=== PATIENT | female | born 1990 | race Two or more races ===

== ENCOUNTER 2020-04-26 11:00 | Emergency (ER) | payer SELFPAY ==
[~2020-04-26] VITALS: Ht 160 cm; Wt 79.5 kg
--- NOTE | 2020-04-26 15:28 | RAD ---
Three-view left ankle dated 04/26/2020. No comparison available. Clinical data indication: Pain after injury. FINDINGS: 3 views of the left ankle show an oblique fracture through the distal one third shaft fibula with fra cture lines extending to the ankle mortise. The distal tibia and talus are intact. There is diffuse s oft tissue swelling. No additional fractures are seen. IMPRESSION: Oblique fracture through the distal one third shaft fibula, not significantly displaced. Electronically signed by: Tavon Conde MD (04/26/2020 3:25 PM) [id number]
[2020-04-26] MEDS ORDERED: HYDR-3164 PO (15:39)
[2020-04-26] MEDS ORDERED: IBUP-1007 PO (15:39)
--- NOTE | 2020-04-26 15:41 | PHYS DOC ---
Past Medical History Past Medical History: No Pertinent History Past Surgical History: No Surgical History Smoking Status: Current Every Day Smoker Alcohol Use: None Drug Use: Benzodiazepine, Opiates General Adult EDM: Chief Complaint: ANKLE PROBLEM HPI: HPI: Patient is a 29 year old female who presents with injured her left ankle by rolling it 2 months ago and was not seen by a physician for it. States today she was walking and had a sharp shooting pain in the ankle but states this has been happening since the injury. She states is never really gotten better. States been taking ibuprofen and Tylenol. She rates her pain a 7 out of 10. She has a history of being a smoker. Review of Systems: Review of Systems: Constitutional: Denies fever or chills. [] Eyes: Denies change in visual acuity. [] HENT: Denies nasal congestion or sore throat. [] Respiratory: Denies cough or shortness of breath. [] Cardiovascular: Denies chest pain. + Left ankle 1-2+ edema. [] GI: Denies abdominal pain, nausea, vomiting, bloody stools or diarrhea. [] : Denies dysuria. [] Musculoskeletal: Denies back pain. + Left ankle joint pain. [] Integument: Denies rash. [] Neurologic: Denies headache, focal weakness or sensory changes. [] Endocrine: Denies polyuria or polydipsia. [] Lymphatic: Denies swollen glands. [] Psychiatric: Denies depression or anxiety. [] Heart Score: Risk Factors: Risk Factors: DM, Current or recent (<one month) smoker, HTN, HLP, family history of CAD, obesity. Risk Scores: Score 0 - 3: 2.5% MACE over next 6 weeks - Discharge Home Score 4 - 6: 20.3% MACE over next 6 weeks - Admit for Clinical Observation Score 7 - 10: 72.7% MACE over next 6 weeks - Early Invasive Strategies Allergies: Allergies: Allergies Coded Allergies Type Severity Reaction Last Updated Verified No Known Drug Allergies 01/20/14 No Physical Exam: PE: Constitutional: Well developed, well nourished, no acute distress, non-toxic appearance. [] HENT: Normocephalic, atraumatic, bilateral external ears normal, oropharynx moist, no oral exudates, nose normal. [] Eyes: PERRLA, EOMI, conjunctiva normal, no discharge. [] Neck: Normal range of motion, no tenderness, supple, no stridor. [] Cardiovascular:Heart rate regular rhythm, no murmur [] Lungs & Thorax: Bilateral breath sounds clear to auscultation [] Abdomen: Bowel sounds normal, soft, no tenderness, no masses, no pulsatile masses. [] Skin: Warm, dry, no erythema, no rash. [] Back: No tenderness, no CVA tenderness. [] Extremities: Left medial and lateral ankle tenderness, no cyanosis, no clubbing, ROM intact, 2+ edema. [] Neurologic: Alert and oriented X 3, normal motor function, normal sensory function, no focal deficits noted. [] Psychologic: Affect normal, judgement normal, mood normal. [] Current Patient Data: Labs: Laboratory Tests Test 04/26/20 14:13 POC Urine HCG, Qualitative Hcg negative (Negative) EKG: EKG: [] Radiology/Procedures: Radiology/Procedures: [] Impression: [facility] [address] [place], [place] [id number] IMAGING REPORT Signed PATIENT: LEXY YU ACCOUNT: [id number] : 1990 LOCATION: ER AGE: 29 SEX: F EXAM STATUS: REG ER ORD. PHYSICIAN: RIA OLSEN APRN REASON: pain, swelling PROCEDURE: ANKLE LEFT 3V Three-view left ankle dated 04/26/2020. No comparison available. Clinical data indication: Pain after injury. FINDINGS: 3 views of the left ankle show an oblique fracture through the distal one third shaft fibula with fracture lines extending to the ankle mortise. The distal tibia and talus are intact. There is diffuse soft tissue swelling. No additional fractures are seen. IMPRESSION: Oblique fracture through the distal one third shaft fibula, not significantly displaced. Electronically signed by: Tavon Conde MD (04/26/2020 3:25 PM) [id number] DICTATED and SIGNED BY: TAVON CONDE MD DATE: 04/26/20 [id number] 0 Course & Med Decision Making: Course & Med Decision Making Pertinent Labs and Imaging studies reviewed. (See chart for details) See HPI. Alert and oriented x4. Ambulatory with a steady gait. Pedal pulses strong and present. There is some medial and lateral ankle tenderness. There is no joint laxity. She has full range of motion of the joint. She can wiggle her toes. Cap refill less than 2 seconds. Skin warm pink and dry. She denies any numbness or tingling. Ankle is 1+ swelling. Patient is placed in a stirrup splint due to a fibula fracture. Splint assessment: Neurovascularly intact post splint replacement with good f it. Patient's extremity symptoms have stabilized well they have been evaluated in the department and are appropriate for outpatient follow-up. No evidence of compartment syndrome, neurologic injury, vascular injury, open joint, open fracture, tendon laceration, or foreign body. [] Dragon Disclaimer: Dragon Disclaimer: This electronic medical record was generated, in whole or in part, using a voice recognition dictation system. Departure Departure Impression: Primary Impression: Fibula fracture Qualified Codes: S82.832A - Other fracture of upper and lower end of left fibula, initial encounter for closed fracture Disposition: 01 DC HOME SELF CARE/HOMELESS Condition: STABLE Referrals: NO PCP (PCP) SHIRLEY LYLE MD Patient Instructions: Fibular Fracture with [facility] Additional Instructions: Follow-up with orthopedic as soon as possible. Take medication as prescribed. Use ice and elevation. Scripts Ibuprofen (IBUPROFEN) 600 Mg Tablet 600 MG PO PRN Q6HRS PRN for INFLAMMATION, #20 TAB Prov: RIA OLSEN TIME STUDY ENGINEER 04/26/20 Hydrocodone/Apap 5-325 (NORCO 5-325 TABLET) 1 Each Tablet 1 TAB PO PRN Q6HRS PRN for PAIN, #6 TAB 0 Refills Prov: RIA OLSEN TIME STUDY ENGINEER 04/26/20 RIA OLSEN APRN Apr 26, 2020 15:41
[2020-04-26 16:00] VITALS: BP 119/58
== END 2020-04-26 16:05 | disposition home or self-care (01) ==
LOC: ER 11:00
DX: S82.832A Other fracture of upper and lower end of left fibula, initial encounter for closed fracture (principal); R60.0 Localized edema; F17.200 Nicotine dependence, unspecified, uncomplicated; F19.90 Other psychoactive substance use, unspecified, uncomplicated; X58.XXXA Exposure to other specified factors, initial encounter; Y93.89 Activity, other specified; Y92.89 Other specified places as the place of occurrence of the external cause; Y99.8 Other external cause status
CPT/HCPCS: 29515; 73610; 81025; 99283

== ENCOUNTER 2021-01-02 23:06 | Emergency (ER) | payer SELFPAY ==
[~2021-01-02 23:06] MED LIST: HYDR-3164 PO; IBUP-1007 PO
== END 2021-01-02 23:30 | disposition left against medical advice (07) ==
LOC: ER 23:06
DX: T65.891A Toxic effect of other specified substances, accidental (unintentional), initial encounter (principal); Z53.21 Procedure and treatment not carried out due to patient leaving prior to being seen by health care provider; Y92.89 Other specified places as the place of occurrence of the external cause

== ENCOUNTER 2021-06-14 16:58 | Emergency (ER) | payer MEDICAID ==
[~2021-06-14] VITALS: Ht 160 cm; Wt 86.4 kg
[2021-06-14 17:42] LABS: BILIRUBIN,URINE NEGATIVE (NEG); CLARITY,URINE CLOUDY; COLOR,URINE YELLOW; NITRITE,URINE NEGATIVE (NEG); PH,URINE 8.5 (<5.0-8.0); PROTEIN,URINE NEGATIVE (NEG-TRACE); UROBILINOGEN,URINE 0.2 mg/dL (0.2 mg/dL)
[2021-06-14 17:47] LABS: BASO % 1 % (0-3); EOS # 0.3 x10^3/uL (0.0-0.7); EOS % 3 % (0-3); HEMATOCRIT 32.3 % (36.0-47.0); HEMOGLOBIN 10.9 g/dL (12.0-15.5); LYMPH # 1.8 x10^3/uL (1.0-4.8); LYMPH % 18 % (24-48); MEAN CORPUSCULAR HEMOGLOBIN 30 pg (25-35); MEAN CORPUSCULAR HGB CONC 34 g/dL (31-37); MEAN CORPUSCULAR VOLUME 89 fL (79-100); MONO # 0.8 x10^3/uL (0.0-1.1); MONO % 8 % (0-9); NEUT # 6.8 x10^3/uL (1.8-7.7); NEUT % 70 % (31-73); PLATELET COUNT 332 x10^3/uL (140-400); RED BLOOD COUNT 3.65 x10^6/uL (3.50-5.40); RED CELL DISTRIBUTION WIDTH 12.7 % (11.5-14.5); WHITE BLOOD COUNT 9.7 x10^3/uL (4.0-11.0)
[2021-06-14 17:59] LABS: AMORPHOUS SEDIMENT,UR PRESENT /HPF; BACTERIA,URINE FEW /HPF (0-FEW); RBC,URINE 0 /HPF (0-2); WBC,URINE 0 /HPF (0-4)
[2021-06-14 18:03] LABS: CALCIUM 8.5 mg/dL (8.5-10.1); CREATININE 0.4 mg/dL (0.6-1.0); GFR 186.2; POTASSIUM 4.4 mmol/L (3.5-5.1)
[2021-06-14 18:09] LABS: ALBUMIN 3.2 g/dL (3.4-5.0); TOTAL BILIRUBIN 0.2 mg/dL (0.2-1.0); TOTAL PROTEIN 6.5 g/dL (6.4-8.2)
--- NOTE | 2021-06-14 18:55 | PHYS DOC ---
Past Medical History Past Medical History: No Pertinent History Past Surgical History: Other Additional Past Surgical Histo: RIGHT FOREARM Smoking Status: Current Every Day Smoker Alcohol Use: Rarely Drug Use: Benzodiazepine, Opiates General Adult EDM: Chief Complaint: ABDOMINAL PAIN IN HPI: HPI: Patient is a 30 year old female 2 para 1 currently 14-1/2 weeks presenting today complaining of abdominal pain in as well as nausea vomiting. Patient states abdominal pain has been going on for 1 week and nausea and vomiting has been going on for 3 weeks. Patient denies any fever. Denies any diarrhea. Denies any medical problems. She states she has a knot on her umbilicus and doesn't know what this knot is all about. She states she noted the knot a week ago. She states [facility]. Review of Systems: Review of Systems: Constitutional: Denies fever or chills. [] Eyes: Denies change in visual acuity. [] HENT: Denies nasal congestion or sore throat. [] Respiratory: Denies cough or shortness of breath. [] Cardiovascular: Denies chest pain or edema. [] GI: Denies abdominal pain, nausea, vomiting, bloody stools or diarrhea. [] : Denies dysuria. [] Musculoskeletal: Denies back pain or joint pain. [] Integument: Denies rash. [] Neurologic: Denies headache, focal weakness or sensory changes. [] Endocrine: Denies polyuria or polydipsia. [] Lymphatic: Denies swollen glands. [] Psychiatric: Denies depression or anxiety. [] Heart Score: C/O Chest Pain: N/A Risk Factors: Risk Factors: DM, Current or recent (<one month) smoker, HTN, HLP, family history of CAD, obesity. Risk Scores: Score 0 - 3: 2.5% MACE over next 6 weeks - Discharge Home Score 4 - 6: 20.3% MACE over next 6 weeks - Admit for Clinical Observation Score 7 - 10: 72.7% MACE over next 6 weeks - Early Invasive Strategies Allergies: Allergies: Allergies Coded Allergies Type Severity Reaction Last Updated Verified No Known Drug Allergies 01/20/14 No Physical Exam: PE: Constitutional: Well developed, well nourished, no acute distress, non-toxic appearance. [] HENT: Normocephalic, atraumatic, bilateral external ears normal, oropharynx moist, no oral exudates, nose normal. [] Eyes: PERRLA, EOMI, conjunctiva normal, no discharge. [] Neck: Normal range of motion, no tenderness, supple, no stridor. [] Cardiovascular:Heart rate regular rhythm, no murmur [] Lungs & Thorax: Bilateral breath sounds clear to auscultation [] Abdomen: Gravid abdomen, reducible umbilical hernia noted, tenderness around the hernia, bowel sounds normal, soft, no masses, no pulsatile masses. [] Skin: Warm, dry, no erythema, no rash. [] Back: No tenderness, no CVA tenderness. [] Extremities: No tenderness, no cyanosis, no clubbing, ROM intact, no edema. [] Neurologic: Alert and oriented X 3, normal motor function, normal sensory function, no focal deficits noted. [] Psychologic: Affect normal, judgement normal, mood normal. [] Current Patient Data: Labs: Laboratory Tests Test 06/14/21 17:14 06/14/21 17:27 06/14/21 17:37 Urine Collection Type Unknown Urine Color Yellow Urine Clarity Cloudy Urine pH 8.5 (<5.0-8.0) Urine Specific [place] 1.015 (1.000-1.030) Urine Protein Negative mg/dL (NEG-TRACE) Urine Glucose (UA) Negative mg/dL (NEG) Urine Ketones (Stick) Negative mg/dL (NEG) Urine Blood Negative (NEG) Urine Nitrite Negative (NEG) Urine Bilirubin Negative (NEG) Urine Urobilinogen Dipstick 0.2 mg/dL (0.2 mg/dL) Urine Leukocyte Esterase Negative (NEG) Urine RBC 0 /HPF (0-2) Urine WBC 0 /HPF (0-4) Urine Amorphous Sediment Present /HPF Urine Bacteria Few /HPF (0-FEW) POC Urine HCG, Qualitative Hcg positive (Negative) White Blood Count 9.7 x10^3/uL (4.0-11.0) Red Blood Count 3.65 x10^6/uL (3.50-5.40) Hemoglobin 10.9 g/dL (12.0-15.5) L Hematocrit 32.3 % (36.0-47.0) L Mean Corpuscular Volume 89 fL (79-100) Mean Corpuscular Hemoglobin 30 pg (25-35) Mean Corpuscular Hemoglobin Concent 34 g/dL (31-37) Red Cell Distribution Width 12.7 % (11.5-14.5) Platelet Count 332 x10^3/uL (140-400) Neutrophils (%) (Auto) 70 % (31-73) Lymphocytes (%) (Auto) 18 % (24-48) L Monocytes (%) (Auto) 8 % (0-9) Eosinophils (%) (Auto) 3 % (0-3) Basophils (%) (Auto) 1 % (0-3) Neutrophils # (Auto) 6.8 x10^3/uL (1.8-7.7) Lymphocytes # (Auto) 1.8 x10^3/uL (1.0-4.8) Monocytes # (Auto) 0.8 x10^3/uL (0.0-1.1) Eosinophils # (Auto) 0.3 x10^3/uL (0.0-0.7) Basophils # (Auto) 0.0 x10^3/uL (0.0-0.2) Maternal Serum HCG Beta Subunit 22759 mIU/mL (0-5) H Sodium Level 139 mmol/L (136-145) Potassium Level 4.4 mmol/L (3.5-5.1) Chloride Level 103 mmol/L (98-107) Carbon Dioxide Level 26 mmol/L (21-32) Anion Gap 10 (6-14) Blood Urea Nitrogen 14 mg/dL (7-20) Creatinine 0.4 mg/dL (0.6-1.0) L Estimated GFR (Cockcroft-Gault) 186.2 BUN/Creatinine Ratio 35 (6-20) H Glucose Level 108 mg/dL (70-99) H Calcium Level 8.5 mg/dL (8.5-10.1) Total Bilirubin 0.2 mg/dL (0.2-1.0) Aspartate Amino Transferase (AST) 11 U/L (15-37) L Alanine Aminotransferase (ALT) 30 U/L (14-59) Alkaline Phosphatase 50 U/L (46-116) Total Protein 6.5 g/dL (6.4-8.2) Albumin 3.2 g/dL (3.4-5.0) L Albumin/Globulin Ratio 1.0 (1.0-1.7) Laboratory Tests 06/14/21 17:37 Laboratory Tests 06/14/21 17:37 Vital Signs: Vital Signs Date Time Temp Pulse Resp B/P (MAP) Pulse Ox O2 Delivery O2 Flow Rate FiO2 06/14/21 17:06 97.6 78 17 123/62 (82) 99 Room Air 97.6 EKG: EKG: [] Radiology/Procedures: Radiology/Procedures: []PROCEDURE: OB LIMITED US OB LIMITED History: Reason: abd pain in 14wks / Spl. Instructions: / History: Comparison: None. Technique: Multiple grayscale images, color Doppler, and M-mode images of the uterus are obtained. Findings: There is a single intrauterine gestation in breech presentation. The placenta is posterior in location with placenta previa. The amount of amniotic fluid appears appropriate. Amniotic fluid within normal limits. Cervix is closed. Biometrical data: BPD = 3.1 cm for 15 weeks 6 days. HC = 11.5 cm for 15 weeks 4 days. AC = 10.4 cm for 16 weeks 3 days. FL = 1.69 cm for 15 weeks 0 days. HC/AC ratio = 1.11. Overall, the estimated sonographic gestational age is 15 weeks 5 days for an estimated date of delivery of December 01, 2021. The estimated date of delivery provided by the last menstrual period is December 08, 2021. heart rate 152 bpm. There is movement. Impression: 1. Single intrauterine gestation with estimated gestational age 15 weeks 5 days. 2. Placenta previa. Recommend ultrasound follow-up. Electronically signed by: Xander Fraga DO (06/14/2021 7:36 PM) IGGYARBEN DICTATED and SIGNED BY: XANDER FRAGA DO DATE: 06/14/[id number] 0 PROCEDURE: ABDOMEN LTD US ABDOMEN LIMITED History:Reason: umbilical hernia pain / Spl. Instructions: / History: Comparison: None Technique: Sonographic examination of the umbilical region Findings: Small focal fat-containing right periumbilical hernia measures 2.0 x 1.3 cm. Impression: 1. Small periumbilical fat-containing hernia. Electronically signed by: Xander Fraga DO (06/14/2021 7:37 PM) IGGYARBEN DICTATED and SIGNED BY: XANDER FRAGA DO DATE: 06/14/[id number] 0 Course & Med Decision Making: Course & Med Decision Making Pertinent Labs and Imaging studies reviewed. (See chart for details) This is a 30-year-old female patient 2 para 1 presented to the ED today with abdominal pain in as well as nausea and vomiting. Also complaining of a knot on her umbilicus. Positive urine hCG, beta-hCG 29,981. Hemoglobin 10.9 with hematocrit of 32.3 OB ultrasound noted for an IUP 15W 5D, heart rate 152, placenta previa. Patient instructed not to have any intercourse or insert anything in her vagina until seen by her CLINICAL CASE MANAGER Limited abdominal ultrasound confirmed umbilical hernia Patient states she follows up with the health department for her OB care, she states she has an appointment next week., UA negative for infection. Instructed to follow-up as scheduled. Provided return precautions. Dragon Disclaimer: Dragon Disclaimer: This electronic medical record was generated, in whole or in part, using a voice recognition dictation system. Departure Departure Impression: Primary Impression: Abdominal pain in Qualified Codes: O26.892 - Other specified related conditions, second trimester; R10.9 - Unspecified abdominal pain Additional Impressions: Placenta previa Qualified Codes: O44.02 - Complete placenta previa nos or without hemorrhage, second trimester Umbilical hernia Qualified Codes: K42.9 - Umbilical hernia without obstruction or gangrene Disposition: 01 HOME / SELF CARE / HOMELESS Condition: STABLE Referrals: NO PCP (PCP) follow up with your OBGYN/health department as soon as you can JOSE ALFREDO VIEYRA MD follow up in 1-2 weeks as needed for your hernia Patient Instructions: Abdominal Pain (Nonspecific), Hernia, - Placenta Previa Additional Instructions: You were evaluated in the emergency room and noted to be 15 weeks 5 days . You also have an umbilical hernia. This can be followed up with a general surgeon provided. Follow-up with your CLINICAL CASE MANAGER as soon as you can. Your placenta is lying on your cervix. Please do not insert anything in your vagina. No sex until seen by your OBGYN. Scripts Prochlorperazine Maleate (Compazine) 10 Mg Tablet 1 TAB PO Q6HRS for 7 Days, #28 TAB 0 Refills Prov: MAIKOL DUMAS APRN 06/14/21 MAIKOL DUMAS APRN Jun 14, 2021 18:55
--- NOTE | 2021-06-14 19:39 | RAD ---
US OB LIMITED History: Reason: abd pain in 14wks / Spl. Instructions: / History: Comparison: None. Technique: Multiple grayscale images, color Doppler, and M-mode images of the uterus are obtained. Findings: There is a single intrauterine gestation in breech presentation. The placenta is posterior in locatio n with placenta previa. The amount of amniotic fluid appears appropriate. Amniotic fluid within norm al limits. Cervix is closed. Biometrical data: BPD = 3.1 cm for 15 weeks 6 days. HC = 11.5 cm for 15 weeks 4 days. AC = 10.4 cm for 16 weeks 3 days. FL = 1.69 cm for 15 weeks 0 days. HC/AC ratio = 1.11. Overall, the estimated sonographic gestational age is 15 weeks 5 days for an estimated date of delive ry of December 01, 2021. The estimated date of delivery provided by the last menstrual period is December 08, 2021. heart rate 152 bpm. There is movement. Impression: 1. Single intrauterine gestation with estimated gestational age 15 weeks 5 days. 2. Placenta previa. Recommend ultrasound follow-up. Electronically signed by: Xander Bojorquez DO (06/14/2021 7:36 PM) [facility]
--- NOTE | 2021-06-14 19:40 | RAD ---
US ABDOMEN LIMITED History:Reason: umbilical hernia pain / Spl. Instructions: / History: Comparison: None Technique: Sonographic examination of the umbilical region Findings: Small focal fat-containing right periumbilical hernia measures 2.0 x 1.3 cm. Impression: 1. Small periumbilical fat-containing hernia. Electronically signed by: Xander Bojorquez DO (06/14/2021 7:37 PM) [facility] [place]
[2021-06-14 20:00] VITALS: BP 104/51
[2021-06-14] MEDS ORDERED: PROC10TA57 PO (20:01)
== END 2021-06-14 20:22 | disposition home or self-care (01) ==
LOC: ER 16:58
DX: O44.02 Complete placenta previa NOS or without hemorrhage, second trimester (principal); K42.9 Umbilical hernia without obstruction or gangrene; O99.332 Smoking (tobacco) complicating pregnancy, second trimester; Z3A.14 14 weeks gestation of pregnancy
CPT/HCPCS: 36415; 76705; 76815; 80053; 81001; 81025; 84702; 85025; 99285-25